=== PATIENT | female | born 1960 | race Caucasian/White ===

== ENCOUNTER → 2018-01-18 | Outpatient (CLI) | payer BC ==
--- NOTE | 2018-01-18 12:57 | VAS ---
HISTORY: Right lower extremity inflammation and pain. Study: Right lower extremity venous Doppler Comparison: None. TECHNIQUE: Real-time dynamic grayscale, color flow and complete spectral Doppler ultrasound examinat ion of the major deep venous structures were obtained of the right lower extremity. FINDINGS: Right lower extremity: Real-time examination shows no evidence of thrombus within the common femoral , superficial femoral, or popliteal veins. There is normal compressibility throughout. Color flow susana ging shows normal venous blood flow within the major vessels. Doppler examination shows normal venous waveforms with appropriate respiratory variation and augmentation. IMPRESSION: 1. Normal right lower extremity venous Doppler, without evidence of DVT. Reported By:
== END ==
LOC: RAD 12:04
PROVIDERS: ATTEND Nurse Practitioner Family
DX: I83.10 Varicose veins of unspecified lower extremity with inflammation (principal); I83.811 Varicose veins of right lower extremity with pain
CPT/HCPCS: 93971